=== PATIENT | male | born 1945 | race Caucasian/White ===

== ENCOUNTER 2018-02-28 13:32 | Emergency (ER) | payer MEDICARE ==
[2018-02-28 15:15] LABS: INR 3.91 (0.77-1.02)
[2018-02-28 15:53] VITALS: BP 137/73
--- NOTE | 2018-03-01 17:11 | ED ---
Throat Pain/Nasal Congestion - HPI Summary HPI Summary: Pt. is a 72 y.o male who presents to the ED for evaluation of nasal packing. Pt. is on coumadin for valve replacement. Pt. states he occasionally gets nosebleeds but is usually able to stop them at home. Pt. states his nose started bleeding today and would not stop so he went to [facility]. There pt. had nasal packing placed. Pt. presents to the ER for re-evaluation because he feels as though packing is in too far and he can feel it in his throat. Bleed has mostly subsided. Pt. denies any other complaints. Symptoms are mild in severity. No current modifying factors. - History of Current Complaint Chief Complaint: EDEpistaxis Time Seen by Provider: 02/28/18 14:09 Hx Obtained From: Patient - Allergies/Home Medications Allergies/Adverse Reactions: Allergies Allergy/AdvReac Type Severity Reaction Status Date / Time Penicillins Allergy See Comment Verified 02/28/18 13:39 Home Medications: Home Medications Carvedilol TAB* [Coreg TAB*] 1 tab PO BID 02/28/18 [History Confirmed 02/28/18] Cetirizine* [ZyrTEC 10 MG TAB*] 1 tab PO DAILY 02/28/18 [History Confirmed 02/28] Enalapril Maleate 1 tab PO DAILY 02/28/18 [History Confirmed 02/28/18] Insulin Glargine,Hum.rec.anlog [Leonor Sorenson] 10 units SUBCUT DAILY 02/28 [History Confirmed 02/28/18] Insulin Lispro [Humalog Kwikpen U-100] 1 unit SUBCUT AC 02/28/18 [History Confirmed 02/28/18] Neomyc/Colist/Hydrocort/Thonzn [Coly-Mycin S Otic Susp Drop] 1 drop BOTH EYES DAILY 02/28/18 [History Confirmed 02/28/18] Spironolactone 1 tab PO DAILY 02/28/18 [History Confirmed 02/28/18] Warfarin Sodium 5 - 10 mg PO DAILY 02/28/18 [History Confirmed 02/28/18] PMH/Surg Hx/FS Hx/Imm Hx Previously Healthy: Yes Infectious Disease History: No Infectious Disease History: Denies: Traveled Outside the [place] in Last 30 Days - Family History Family History: Noncontributory - Social History Occupation: Retired Lives: With Family Alcohol Use: None Substance Use Type: Reports: None Smoking Status (MU): Heavy Every Day Tobacco Smoker Review of Systems Positive: Epistaxis All Other Systems Reviewed And Are Negative: Yes Physical Exam Triage Information Reviewed: Yes Vital Signs On Initial Exam: Initial Vitals Temp Pulse Resp BP Pulse Ox 97.6 F 93 14 145/76 97 02/28/18 13:39 02/28/18 13:39 02/28/18 13:39 02/28/18 13:39 02/28/18 13:39 Vital Signs Reviewed: Yes Appearance: Positive: Well-Appearing - Pt. sitting up in bed in NAD. Packing present in right nare. Skin: Positive: Warm, Dry ENT: Positive: Other - Packing in right nare. Very minimal amount of bleeding when pt. touches tissue to packing. Posterior pharynx is patent with out blood Neck: Positive: Supple Neurological: Positive: Normal, CN Intact II-III Psychiatric: Positive: Affect/Mood Appropriate Diagnostics - Vital Signs Vital Signs Temp Pulse Resp BP Pulse Ox 02/28/18 15:53 98.5 F 85 16 137/73 96 02/28/18 13:39 97.6 F 93 14 145/76 97 - Laboratory Lab Results: Lab Results 02/28/18 Range/Units 14:54 INR (Anticoag Therapy) 3.91 H (0.77-1.02) Lab Statement: Any lab studies that have been ordered have been reviewed, and results considered in the medical decision making process. EENT Course/Dx - Course Course Of Treatment: Pt. presenting for re-eval of nasal packing. He has minimal bleeding at this time. VS are stable and he is well appearing. Pt. wishes to have packing removed as it is uncomfortable and he feels packing is too far in his nose. Discussed with pt. that removing packing wound cause re- bleeding and advised pt. it is best to leave packing in place. After I initiallly examined pt., he blew his nose and bleeding from packing increased. INR was check and is midly over therapeutic at 3.9. On re-exam bleeding has stopped. Will leave packing in place. Pt. states he was not placed on antibx at 5 start. He has allergy to PNC, will place on keflex, his states he has had it before without issue. Advised pt. to f.u in ENT office in 48 hours for packing removal. To return to ER if bleeding returns. Advised to avoid touching or blowing nose. To call PCP tomorrow to discuss INR level. Pt. understands and agrees with plan. - Differential Diagnoses Differential Diagnoses: Epistaxis - Diagnoses Provider Diagnoses: Epistaxis Discharge - Sign-Out/Discharge Documenting (check all that apply): Patient Departure - Discharge Plan Condition: Good Disposition: HOME Prescriptions: Cephalexin CAP* [Keflex CAP*] 500 mg PO BID #14 cap Patient Education Materials: Nosebleed (ED) Referrals: Eduardo Marks MD [Primary Care Provider] - Gilles Hobson MD [Medical Doctor] - Additional Instructions: Call the ENT office for packing removal in 48 hours Your INR today was a little high at 3.91- call your PCP tomorrow to discuss Take antibiotic as directed Do not blow or touch nose Return to ER if bleeding returns - Billing Disposition and Condition Condition: GOOD Disposition: Home
== END 2018-02-28 15:53 | disposition home or self-care (01) ==
LOC: ED 13:32
DX: R04.0 Epistaxis (principal); Z79.01 Long term (current) use of anticoagulants; Z95.2 Presence of prosthetic heart valve; Z88.0 Allergy status to penicillin; F17.200 Nicotine dependence, unspecified, uncomplicated
CPT/HCPCS: 36415; 85610; 99282

== ENCOUNTER 2018-03-19 01:14 | Inpatient (IN) | payer MEDICARE, OTHER ==
[2018-03-19] MEDS ORDERED: NS 0.9% 1000 ML* 2,000 ML IV ONE (01:54)
--- NOTE | 2018-03-19 01:55 | ED ---
Dizziness - HPI Summary HPI Summary: This patient is a 72 year old M presenting to [facility] with a chief complaint of sudden onset waxing and waning dizziness since 1700. He states that he isauro from a chair, and became dizzy, diaphoretic, and weak. Pt endorses abd pain and feeling dry and being dehydrated; pt missed 2 days of his Rx Lasix so he took double today. Pt denies SOB, nausea, fever, chills, cough, sore throat, and CP. 20 years ago heart SHx. He denies PMHx COPD, asthma. Pt is a smoker. He denies abd SHx. Rx ABx for left leg skin problem. - History Of Current Complaint Chief Complaint: EDAbdPain Stated Complaint: SOB Time Seen by Provider: 03/19/18 01:21 Hx Obtained From: Patient Onset/Duration: Still Present, Suddenly Timing: Constant - but waxing and waning Severity Initially: Moderate Severity Currently: Moderate Character: Weak, Dizzy Aggravating Factor(s): Position Change - seated to standing Alleviating Factor(s): Nothing Associated Signs And Symptoms: Positive: Diaphoresis, Other: - abd pain. Negative: Chest Pain, SOB, Fever - Allergies/Home Medications Allergies/Adverse Reactions: Allergies Allergy/AdvReac Type Severity Reaction Status Date / Time Penicillins Allergy See Comment Verified 02/28/18 13:39 Home Medications: Home Medications Aspirin 81 mg CHEW TAB* [Aspirin Low Dose TAB*] 81 mg PO DAILY 03/19/18 [ History Confirmed 03/19/18] Bumetanide TAB* [Bumex 1 MG TAB*] 1 mg PO BID 03/19/18 [History Confirmed ] Cephalexin CAP* [Keflex CAP*] 500 mg PO Q6HR 03/19/18 [History Confirmed ] Dutasteride 0.5 mg PO DAILY 03/19/18 [History Confirmed 03/19/18] Omeprazole CAP* [Prilosec CAP* 20 MG] 20 mg PO DAILY 03/19/18 [History Confirmed 03/19/18] Rosuvastatin (NF) [Crestor (NF)] 5 mg PO 1700 03/19/18 [History Confirmed ] Warfarin TAB(*) 10 mg PO SEE INSTRUCTIONS 03/19/18 [History Confirmed 03/19/18] PMH/Surg Hx/FS Hx/Imm Hx Endocrine/Hematology History: Denies: Hx Sickle Cell Disease Cardiovascular History: Reports: Hx Coronary Artery Disease Respiratory History: Denies: Hx Asthma, Hx Chronic Obstructive Pulmonary Disease (COPD) GI History: Denies: Hx Ileostomy Sensory History: Denies: Hx Legally Blind, Hx Deafness Opthamlomology History: Denies: Hx Legally Blind EENT History: Denies: Hx Deafness Psychiatric History: Denies: Hx Autism, Hx Schizophrenia Infectious Disease History: No Infectious Disease History: Denies: Traveled Outside the [place] in Last 30 Days - Family History Known Family History: Negative: Seizure Disorder, Blood Disorder Family History: Noncontributory - Social History Occupation: Retired Alcohol Use: None Substance Use Type: Reports: None Hx Tobacco Use: Yes Smoking Status (MU): Heavy Every Day Tobacco Smoker Review of Systems Positive: Skin Diaphoresis, Other - Dehydrated. Negative: Fever, Chills Negative: Sore Throat Negative: Chest Pain Negative: Shortness Of Breath, Cough Positive: Abdominal Pain. Negative: Nausea Positive: no symptoms reported Positive: Weakness All Other Systems Reviewed And Are Negative: Yes Physical Exam - Summary Physical Exam Summary: Appearance: Well-appearing, morbidly obese, lying in bed comfortably Skin: Warm, mildly diaphoretic, no obvious rash Eyes: sclera anicteric, no conjunctival pallor ENT: mucous membranes moist, pharynx appears normal Neck: Supple, nontender Respiratory: Clear to auscultation, no signs of respiratory distress Cardiovascular: Normal S1, S2. No murmurs. Normal distal pulses in tibial and radial bilaterally. Pt is known to be hypotensive Abdomen: Soft, non-tender, normal active bowel sounds present, morbidly obese Musculoskeletal: Normal, Strength/ROM Intact. Moderate pitting edema of legs. Neurological: A&Ox3, awake and alert, mentation is normal, speech is fluent and appropriate Psychiatric: affect is normal, does not appear anxious or depressed Triage Information Reviewed: Yes Vital Signs On Initial Exam: Initial Vitals Temp Pulse Resp BP Pulse Ox 95.5 F 79 12 71/45 100 03/19/18 01:29 03/19/18 01:29 03/19/18 01:29 03/19/18 01:29 03/19/18 01:29 Vital Signs Reviewed: Yes Diagnostics - Vital Signs Vital Signs Temp Pulse Resp BP Pulse Ox 03/19/18 01:29 95.5 F 79 12 71/45 100 - Laboratory Result Diagrams: 03/19/18 01:57 03/19/18 01:39 Lab Statement: Any lab studies that have been ordered have been reviewed, and results considered in the medical decision making process. - Radiology CXR Radiology Interpretation Completed By: ED Physician - No acute disease. Pending official imaging report. - CT C/A/P CT Interpretation: Positive (See Comments) CT Interpretation Completed By: Radiologist - Probable underlying cirrhosis. Moderate amount of ascites. Multiple heterogeneous hepatic masses --- compatible with metastatic disease. Hepatocellular carcinoma cannot be excluded. No hydronephrosis. Bilateral non-obstructing intrarenal stones. Contracted gallbladder, containing multiple stones. Small right pleural effusion. Dr. Isabel has reviewed this report. - EKG 0216 Cardiac Rate: NL - 79 EKG Rhythm: Sinus Rhythm Ectopy: None EKG Interpretation: LBBB Re-Evaluation - Re-Evaluation First Eval Re-Evaluation Time: 02:01 Change: Worse Comment: Per RN Idalmis, pt endorses new onset pain radiation to his back, and shows worsening pallor. He was emergently sent to the CT scanner to rule out an acute vascular catastrophe in the abdomen or chest. He got through that procedure located, but remained markedly hypotensive. After reasonable trial of fluid bolus, he was started on Levophed, and remained hypotensive despite all that. Etiology of his shock state is unclear. He does not have any evidence of active bleeding, there is no chest pain or troponin abnormalities to suggest acute SD, no history of anaphylaxis, and no acute vascular catastrophe such as aortic dissection or abdominal aortic aneurysmal rupture. He was ordered a transfusion of 2 units of blood as well as broad-spectrum antibiotics to cover for septic shock. Prognosis remains very guarded. Dizzy Course/Dx - Course Course Of Treatment: A 72-year-old M presents to the ED with a CC of dizziness since 1700. (+) diaphoresis, abd pain, dehydrated, and weakness. (-) fever, chills, cough, sore throat, SOB, CP, and nausea. Pt missed past 2 days lasix so he doubled up today. A CXR was (-). An EKG reveals NSR at 79 BPM with a LBBB. A CT C/A/P reveals probable underlying cirrhosis. Moderate amount of ascites. Multiple heterogeneous hepatic masses --- compatible with metastatic disease. Hepatocellular carcinoma cannot be excluded. No hydronephrosis. Bilateral non- obstructing intrarenal stones. Contracted gallbladder, containing multiple stones. Small right pleural effusion. In the ED course, pt was given flagyl, dextrose, nl saline. Pt shows a lactic acid of 8.8, low H&H, high INR and APTT, high glucose, low sodium and chloride, low venous pH, low O2 PP, low bicarbonate , low base xs, low O2 sat. - Diagnoses Provider Diagnoses: Shock, Severe anemia, Metabolic acidosis, Lactic acidosis - Provider Notifications Discussed Care Of Patient With: Sapna Benavidez Time Discussed With Above Provider: 02:47 Instructed by Provider To: Other - Will see pt in ED, accepts admission. - Critical Care Time Critical Care Time: 30-74 min Discharge - Sign-Out/Discharge Documenting (check all that apply): Patient Departure - admit - Discharge Plan Condition: Critical Disposition: ADMITTED TO [facility] - Billing Disposition and Condition Condition: CRITICAL Disposition: Admitted to [facility] - Attestation Statements Document Initiated by Lizette: Yes Documenting Scribe: Siva Holcomb Provider For Whom Lizette is Documenting (Include Credential): Dr. Newton Isabel MD Scribe Attestation: Siva Francisco screrikaed for Dr. Newton Isabel MD on 03/19/18 at 0623. Scribe Documentation Reviewed: Yes Provider Attestation: The documentation as recorded by the Siva tellez accurately reflects the service I personally performed and the decisions made by me, Dr. Newton Isabel MD
[2018-03-19] MEDS ORDERED: Iodixanol* (CONTRAST) 320 MG/ML 100 ML SDV IV ONE (02:15)
[2018-03-19 02:17] LABS: Hematocrit 23 % (42-52); Hemoglobin 6.8 g/dl (14.0-18.0); Mean Corpuscular HGB Conc 30 g/dl (31-36); Mean Corpuscular Hemoglobin 22 pg (27-31); Mean Corpuscular Volume 73 fL (80-94); Mean Platelet Volume 9.7 um3 (7.4-10.4); Platelet Count 363 10^3/ul (150-450); Red Blood Count 3.13 10^6/ul (4.00-5.40); Red Cell Distribution Width 21 % (10.5-15)
[2018-03-19 02:21] LABS: INR 3.81 (0.77-1.02)
[2018-03-19 02:30] LABS: EGFR Non-African American 61.5 (>60)
[2018-03-19 02:36] LABS: ABS Basophils 0.1 10^3/ul (0-0.2); ABS Eosinophils 0 10^3/ul (0-0.6); ABS Lymphocytes 1.5 10^3/ul (1.0-4.8); ABS Monocytes 0.6 10^3/ul (0-0.8); ABS Neutrophils 9.8 10^3/ul (1.5-7.7); ABS Nucleated RBC 0 10^3/ul; Eosinophil % 0.1 % (0-6); Lymphocyte % 12.6 % (25-47); Nucleated Red Blood Cells % 0.3
[2018-03-19] MEDS ORDERED: metroNIDAZOLE IV 500 MG/100ML* 500 MG/100 ML BAG IVPB ONE (02:41)
[2018-03-19] MEDS ORDERED: NS 0.9% 1000 ML*IV.FLUID IV ONE (02:41)
[2018-03-19] MEDS ORDERED: Cefepime(*) 2 GM in NS 0.9% 50 ML* 50 ML IVPB ONE (02:41)
[2018-03-19] MEDS ORDERED: NS 0.9% 50 ML* 50 ML ONE (02:46)
[2018-03-19] MEDS ORDERED: Vancomycin(*) 1,750 MG in NS 0.9% 500 ML* 500 ML IVPB ONE (03:00)
[2018-03-19] MEDS ORDERED: Vancomycin(*) 1,000 MG VIAL IVPB SCH (03:00)
[2018-03-19] MEDS ORDERED: NS 0.9% 500 ML* 500 ML ONE (03:00)
[2018-03-19] MEDS ORDERED: Cefepime 2 GM in Dextrose(*) 2 GM/50 ML BAG IV ONE (03:00)
--- NOTE | 2018-03-19 03:06 | RAD ---
EXAM: CT Chest With Intravenous Contrast CLINICAL HISTORY: 72 year old male. Bloating, SOB, abdominal pain, hypotension. TECHNIQUE: Axial computed tomography images of the chest with intravenous contrast. All CT scans at this facility use at least one of these dose optimization techniques: automated exposure control; mA and/or kV adjustment per patient size (includes targeted exams where dose is matched to clinical indication); or iterative reconstruction. Coronal and sagittal reformatted images were created and reviewed. CONTRAST: 141 mL of Visi administered intravenously COMPARISON: No relevant prior studies available FINDINGS: No prior studies are available for comparison. No focal infiltrates. Small right pleural effusion. No pneumothorax. No acute fracture nor dislocation. No acute aortic pathology. No major nor central pulmonary emboli. IMPRESSION: No focal infiltrates. Small right pleural effusion. EXAM: CT Abdomen and Pelvis With Intravenous Contrast EXAM DATE/TIME: 03/19/18 (2:08am) CLINICAL HISTORY: 72 year old male. Bloating, SOB, abdominal pain, hypotension. TECHNIQUE: Axial computed tomography images of the abdomen and pelvis with intravenous contrast. All CT scans at this facility use at least one of these dose optimization techniques: automated exposure control; mA and/or kV adjustment per patient size (includes targeted exams where dose is matched to clinical indication); or iterative reconstruction. Coronal and sagittal reformatted images were created and reviewed. CONTRAST: 141 mL of Visi administered intravenously COMPARISON: No relevant prior studies available FINDINGS: Small right pleural effusion. Multiple hypodense and heterogeneous hepatic masses. A few such lesion show varying degrees of enhancement. Many appear to be necrotic in nature. Portions of the liver contour are nodular, suggestive of cirrhosis. Moderate amount of abdominal and pelvic ascites. A contracted gallbladder is likely present, containing multiple calcified stones (Ser. 3 - Image #40). No hydronephrosis. Bilateral renal cysts. Bilateral renal cortical atrophy. Bilateral non-obstructing intrarenal stones. No bowel obstruction. No free air. IMPRESSION: Probable underlying cirrhosis. Moderate amount of ascites. Multiple heterogeneous hepatic masses --- compatible with metastatic disease. Hepatocellular carcinoma cannot be excluded. No hydronephrosis. Bilateral non-obstructing intrarenal stones. Contracted gallbladder, containing multiple stones. Small right pleural effusion. See additional comments above.
[2018-03-19] MEDS ORDERED: Norepinephrine 16MCG/ML IVPRE* 4,000 MCG/250 ML BAG IV ONE (03:28)
[2018-03-19] MEDS: Norepinephrine 16MCG/ML IVPRE* 4,000 MCG/250 ML BAG IV SCH ×5 (03:30→22:34)
[2018-03-19] MEDS ORDERED: Ondansetron INJ* 2 MG/ML VIAL IV PRN (04:19)
[2018-03-19] MEDS ORDERED: LORazepam INJ* 2 MG/ML 1 ML VIAL IV PUSH PRN (04:19)
[2018-03-19] MEDS ORDERED: Vancomycin per Pharmacy* NOTE FOLLOW UP PRN (04:25)
[2018-03-19] MEDS ORDERED: NS 0.9% 1000 ML* 1,000 ML IV SCH (04:30)
[2018-03-19] MEDS ORDERED: Dextrose 50% Syringe 50 ML* 25 GM/50 ML SYRINGE IV PUSH PRN (04:33)
[2018-03-19] MEDS ORDERED: Vancomycin(*) 0 MG in NS 0.9% 250 ML* 250 ML IVPB SCH (05:00)
--- NOTE | 2018-03-19 06:54 | PN ---
Sepsis Event Evaluation Date of Evaluation: 03/19/18 Time of Evaluation: 06:20 Current Stage of Sepsis: Septic Shock Vital Signs - Last 12 Hours: Vital Signs - 12 hr Temp Pulse Resp BP Pulse Ox 03/19/18 06:16 93.2 F 77 16 91/42 99 03/19/18 06:01 92.7 F 79 14 90/44 100 03/19/18 06:00 94.3 F 77 27 100 03/19/18 05:46 93.6 F 78 28 82/51 99 03/19/18 05:39 95 F 75 22 82/54 99 03/19/18 05:37 94.3 F 76 16 101/44 98 03/19/18 05:32 94.5 F 77 26 106/58 99 03/19/18 05:20 95 F 77 17 82/54 99 03/19/18 05:16 95.0 F 74 22 82/54 99 03/19/18 05:04 37 03/19/18 04:38 95.4 F 73 18 73/52 95 03/19/18 04:27 95.4 F 74 15 82/45 96 03/19/18 04:05 95.7 F 73 21 90/56 95 03/19/18 04:00 95.7 F 74 23 97 03/19/18 03:56 95.9 F 76 31 75/47 97 03/19/18 03:35 95.9 F 76 22 77/41 93 03/19/18 03:25 95.7 F 75 30 72/40 92 03/19/18 03:08 93.2 F 78 26 76/54 93 03/19/18 03:00 77 21 95 03/19/18 02:45 85 23 82/47 91 03/19/18 02:35 85 21 72/42 95 03/19/18 02:25 81 18 84/50 94 03/19/18 02:23 79 40 94 03/19/18 01:29 95.5 F 79 12 71/45 100 Lactic Acid: 03/19/18 03/19/18 01:57 05:30 Lactic Acid 8.8 H* 9.0 H* - Cardiopulmonary Exam Capillary Refill: < or = to 5 seconds Respiratory: Symmetrical Chest Expansion and Respiratory Effort, Clear to Auscultation Cardiovascular: NL Sounds; No Murmurs; No JVD, RRR, - - 2-3+ pitting edema of the B/L LE - Peripheral Pulse Exam Radial Pulses: Bilateral Normal - Skin Exam Skin Exam: Heil - Barry Coma Scale Best Eye Response: 4 - Spontaneous Best Motor Response: 6 - Obeys Commands Best Verbal Response: 5 - Oriented Coma Scale Total: 15 Assess/Plan/Problems-Billing Assessment:
[2018-03-19 07:25] LABS: Urine Appearance Cloudy; Urine Blood 2+ (Negative); Urine Color Amber; Urine Ketones Negative (Negative); Urine Protein 2+(100 mg/dL) (Negative); Urine Red Blood Cell 2+(6-10/hpf) (Absent); Urine Specific Gravity > 1.060 (1.010-1.030); Urine Urobilinogen Negative (Negative); Urine White Blood Cell 3+(>20/hpf) (Absent)
[2018-03-19] MEDS ORDERED: Insulin LISPRO* 1 UNITS UNIT SUBCUT SCH (07:30)
[2018-03-19] MEDS ORDERED: Vasopressin* 100 UNITS in D5W 250 ML BAG IVPB SCH (07:45)
--- NOTE | 2018-03-19 07:55 | RAD ---
HISTORY: hypotension,attempt at SC CVL on left COMPARISONS: November 04, 2010 VIEWS: 1: frontal portable view of the chest at 3:27 AM FINDINGS: LINES AND TUBES: None. CARDIOMEDIASTINAL SILHOUETTE: The cardiomediastinal silhouette is stable. PLEURA: The costophrenic angles are sharp. No pleural abnormalities are noted. There is no appreciable pneumothorax. LUNG PARENCHYMA: There is prominence of the central pulmonary vasculature with a mild diffuse reticular pattern of opacification. ABDOMEN: The upper abdomen is clear. There is no subphrenic gas. BONES AND SOFT TISSUES: The patient is status post median sternotomy. IMPRESSION: PULMONARY VASCULAR CONGESTION WITH MILD PULMONARY INTERSTITIAL EDEMA. NO APPRECIABLE PNEUMOTHORAX. R2
[2018-03-19] MEDS ORDERED: Perflutren Lipid Microsphere* 3 ML VIAL ONE (08:09)
[2018-03-19 08:50] LABS: EGFR Non-African American 60.3 (>60)
[2018-03-19 08:52] LABS: Hematocrit 22 % (42-52); Hemoglobin 6.6 g/dl (14.0-18.0); Mean Corpuscular HGB Conc 30 g/dl (31-36); Mean Corpuscular Hemoglobin 24 pg (27-31); Mean Corpuscular Volume 79 fL (80-94); Mean Platelet Volume 9.6 um3 (7.4-10.4); Platelet Count 328 10^3/ul (150-450); Red Blood Count 2.79 10^6/ul (4.00-5.40); Red Cell Distribution Width 23 % (10.5-15); White Blood Count 15.9 10^3/ul (3.5-10.8)
[2018-03-19] MEDS ORDERED: Omeprazole CAP* 20 MG PO SCH (09:00)
[2018-03-19] MEDS ORDERED: Aspirin 81 mg CHEW TAB* 81 MG TAB.CHEW PO SCH (09:00)
[2018-03-19] MEDS ORDERED: fentaNYL* 50 MCG/ML 2 ML VIAL (100 MCG VIAL) ONE (09:02)
[2018-03-19] MEDS: Insulin LISPRO* 1 UNITS UNIT SUBCUT SCH ×3 (09:06→19:47)
[2018-03-19] MEDS ORDERED: fentaNYL* 50 MCG/ML 2 ML VIAL (100 MCG VIAL) IV ONE (10:00)
--- NOTE | 2018-03-19 10:20 | HP ---
CC: Dr. Marks; Dr. Moreno HISTORY AND PHYSICAL: DATE OF ADMISSION: 03/19/18 PRIMARY CARE PROVIDER: Dr. Marks SATELLITE COMMUNICATIONS OPERATOR: Dr. Moreno CHIEF COMPLAINT: Not acting right, perfuse sweating, and concern for dehydration. HISTORY OF PRESENT ILLNESS: Mr. Cummins is a 72-year-old male who currently is unable to provide any history. His attempts to provide history, however, she generally does a poor job of relaying t he events over the last couple of days. Per the patient's , the patient had been relatively norm al up until dinnertime of the night prior to admission. She noted that he did not eat any dinner. Evon calix then began this complaint of feeling dizzy when he tried to get up to go to bed. He needed assista nce getting through the bedroom. He did go to bed early. Reportedly, the patient at some point yeste rday complained of feeling very sweaty and dehydrated. He had not taken his diuretic for the 2 days prior as he had appointments and he did not want to be urinating, while trying to get to those appoin tments. He spoke with his primary care provider, who told him to double up his diuretic, which he di d on 02/15/18. With the patient not acting completely right and his complaints of sweating and stati ng that he felt dehydrated, the patient's had him brought to the emergency room. Of note, the p atdeshawn did have a nosebleed around 02/28/18. He was seen at [facility] and subsequently f ollowed up in the emergency room due to concerns about his packing being not on the correct place. U ltimately, the packing was removed and he had no further issues with severe nosebleeds. That noseblee d, however, lasted approximately 5 hours. PAST MEDICAL HISTORY: 1. Coronary artery disease, status post [place] x2. 2. Hypertension. 3. Hyperlipidemia. 4. Type 2 diabetes. 5. Ongoing tobacco abuse. PAST SURGICAL HISTORY: Aortic valve replacement/mechanical. MEDICATIONS: 1. Toujeo 10 units subcutaneous at bedtime. 2. Crestor 5 mg p.o. daily. 3. Aspirin 81 mg p.o. daily. 4. Dutasteride 0.5 mg p.o. daily. 5. Coumadin 10 mg on Thursday, Thursday, Thursday, , Thursday, 7.5 mg on Thursday and Thursday. 6. Bumex 1 mg p.o. b.i.d. 7. Omeprazole 20 mg p.o. daily. 8. Cetirizine 10 mg p.o. daily. 9. Enalapril 20 mg p.o. b.i.d. 10. Lispro via sliding scale q.a.c. 11. Spironolactone 25 mg p.o. daily. 12. Coreg 25 mg p.o. twice daily. ALLERGIES: PENICILLIN. FAMILY HISTORY: Both parents had a history of coronary disease. SOCIAL HISTORY: The patient is still smoking. He smokes anywhere between 1 to 1- 1/2 packs perhaps u p to 2 packs per day. He smoked for at least the last 60 years. He denies any alcohol use. He is a retired welder apprentice gas/vaudeville actor. He is . He has 4 children. REVIEW OF SYSTEMS: Unobtainable from the patient due to agitation and confusion. PHYSICAL EXAMINATION GENERAL: The patient is a well-developed, obese, elderly male, seen lying in the stretcher, appearin g agitated, frequently trying to roll over, but in no acute distress. VITAL SIGNS: Blood pressure 73/52, pulse 72, respirations 18, temp 95.4, O2 sat 95% on 2 L. HEENT: Pupils are equal. Extraocular muscles are intact. Oropharynx is clear. Oral mucosa is dry. There is no submandibular, cervical, or supraclavicular adenopathy. Thyroid is not enlarged. No th yroid nodules noted. PULMONARY: Lungs are clear to auscultation anteriorly and at the lateral bases. CARDIAC: Normal S1, S2. Regular rate and rhythm. I do not appreciate any murmurs. There is 2 to 3 + bilateral lower extremity pitting edema. ABDOMEN: Bowel sounds are present. Abdomen is obese, soft, nondistended, nontender. I do question a fluid wave. MUSCULOSKELETAL: There is no cyanosis or clubbing of the digits. There is full active range of katie on of all 4 extremities. NEURO: Exam is deferred at this time due to the patient's agitation. PSYCH: The patient is agitated, frequently asking if he can roll over and stating that he feels hot. SKIN: Cool is to touch, it is dry. There is a large approximately medium-sized orange ruptured blis ter noted to the left anterior ramon. The denuded area of skin is weeping serous fluid. DIAGNOSTIC STUDIES/LAB DATA: WBC 12.0, hemoglobin 6.8, hematocrit 23, platelets 363. INR 3.81. Sod ium 134, potassium 4.7, chloride 97, CO2 18, anion gap of 19. BUN 27, glucose 288, lactic acid 8.8, c alcium 8.4, bilirubin 1.4, AST 55, ALT 18, alk phos 112, troponin 0.02, albumin 3.0, procalcitonin 0. 2. Chest x-ray to my interpretation appears to be a poor inspiratory film, though clear. CT abdomen and pelvis reveals no focal infiltrates of the lungs, a small right pleural effusion. CT abdomen and pe lvis is probable underlying cirrhosis with a moderate amount of ascites. There are multiple heteroge neous hepatic masses compatible with metastatic disease. Hepatocellular carcinoma cannot be excluded . No hydronephrosis. Bilateral nonobstructing intrarenal stones are noted. A contracted gallbladder is noted containing multiple stones. EKG reveals sinus rhythm with a left bundle-branch block. ASSESSMENT AND PLAN: Mr. Cummins is a 72-year-old male with a history of coronary artery disease, on going tobacco abuse, hypertension, and type 2 diabetes, who presents to the emergency room with vague complaints of not acting normal, feeling dehydrated in the setting of doubling up his diuretic. 1. Shock. At this point, it appears the patient is in shock. He is hypotensive requiring vasopress ors at high dose to maintain a MAP around 65. The etiology of the shock is not completely clear. Dif ferential for this would be hemorrhagic given his recent nosebleed, however, this was approximately 2 weeks ago, however, he is identified to have a worsened anemia versus hypovolemic shock secondary to hemorrhage and taking his diuretic therapy versus cardiogenic shock versus distributive or septic sh ock. At this point, I am going to go ahead and treat the patient as if he has a septic shock given he is hypothermic, he has received broad- spectrum antibiotics in the emergency room and will continue on cefepime and vancomycin. Lactic acid levels will be followed every 4 hours until they have normal ized. The patient was ordered 30 mL/kg bolus in the emergency room, however, given his marked anemia , the patient did receive 2 units of packed red blood cells, which delayed the administration of the full 30 mL/kg bolus within the first 3 hours of his stay. He will complete the 30 mL/kg bolus and th en continue on normal saline at 100 mL per hour, however, he will need another fluid assessment to de termine if this rate should be increased. Transthoracic echocardiogram has been ordered to evaluate the patient's mechanical aortic valve as well as systolic function. In our system, it does not appea r that there has been an echocardiogram since 2008. 2. Hypothermia, it is unclear why the patient is hypothermic. We will obtain a cortisol level. This could be secondary to sepsis. The patient states that he feels very hot, however, to touch he is very cool. Once in ICU, we will reevaluate the patient's temperature and likely place a Mehdi Hugger. 3. Anemia. The patient had blood work obtained as ordered by his primary care provider on 03/18/18. At this time, his hemoglobin was 8.9. It is dropped to 6.8. The patient and his are unable to tell me if there have been any signs of bleeding recently. He is on Coumadin and his INR is slightl y supratherapeutic for his goal of 2.5 to 3.5. As above, the patient is receiving 2 units of packed red blood cells. Follow up hemoglobin will be obtained at 8 a.m. Lab work from 03/18/18 did reveal that he is iron deficient with his iron level of 31, TIBC of 413, percent saturation of 8%, and a lizette ritin of 33.8. Once stabilized, the patient should be initiated on iron supplementation. 4. Metabolic acidosis, I suspect this is secondary to his marked lactic acidosis. We will try to imp rove perfusion with fluid, blood, and pressors. I suspect as the lactic acidosis resolves, his metab olic acidosis will be correct as well. 5. Probable hepatic metastasis. The patient's CT abdomen and pelvis reveals likely hepatic metastas is. There is report that some of these appeared to be necrotic. The patient once stabilized from a h emodynamic standpoint, should undergo evaluation for these lesions within the liver. 6. Type 2 diabetes. The patient will be maintained on 10 units of Lantus at bedtime and a sliding s frank every 6 hours as I will keep him n.p.o. for now. 7. Hypertension. At this point, the patient is clearly hypotensive. His antihypertensives will be held. 8. Coronary artery disease. The patient's first 2 troponins are negative. The patient's did n ot report hearing any complaints of chest pain. The patient will be getting an echocardiogram. The l eft bundle-branch block seen on EKG is new compared to his last EKG, which was 2008. An attempt to ge t a more recent EKG should be made. 9. Tobacco abuse. For now, I will hold off on nicotine replacement therapy, however, as the patient stabilizes, this should be offered to him. 10. DVT prophylaxis. According to the Adult Thrombosis Prophylaxis Risk Factor Assessment Guide, th e patient has a total risk factor score of 6, making him highest risk. His INR is slightly suprather apeutic at this time. This will act as his DVT prophylaxis. His Coumadin dose will need to be adjuste d tonight if he is to stay on the Coumadin. 11. Code status is full. TIME SPENT: 70 minutes of critical care time was spent admitting this patient. [id number]/[facility] #: [id number]
[2018-03-19] MEDS ORDERED: Sodium Bicarbonate 8.4%* 50 ML SYRINGE ONE (10:41)
[2018-03-19] MEDS ORDERED: Epinepherine DRIP 4 mcg/ml 250 mls (dosed in mcg/kg/min) IVPB SCH (10:45)
[2018-03-19] MEDS ORDERED: Piperacillin/Tazobac ADVAN(*) 3.375 GM in NS 0.9% 100 ML* 100 ML IVPB ONE (11:44)
--- NOTE | 2018-03-19 11:53 | PN ---
Date of Service: 03/19/18 Critical Care Services: 72M with htn, hld, dm, cad s/p mi, cirrhosis, presents with weakness. Found to be in septic shock in the ER 2/[address] scan with new metastatic disease seen in the liver. 03/19: Worsening hypotension. Maxed on 3 pressors. Vital Signs: Temp Pulse Resp BP SpO2 FiO2 97.3 F 79 28 93/85 97 03/19/18 11:00 03/19/18 11:00 03/19/18 11:00 03/19/18 10:08 03/19/18 11:00 Physical Exam: Gen - acutely ill, obese HEENT - ncat, eomi, perrl Neck - no jvd CV - s1/s2, +click Pulm - cta, no murmur Abd - +distention ext - +chronic stasis changes, + left ramon ulcer Neuro - lethargic, following commands Fluid Balance (Past 24 Hours): I= O= Net Intake & Output 03/17/18 03/18/18 03/19/18 03/20/18 06:59 06:59 06:59 06:59 Intake Total 243 520 Output Total 151 Balance 243 369 Weight 122.9 kg Intake: IVPB 520 ABX - VANCOMYCIN 520 Packed Cells 243 Output: Roper 151 Labs: Laboratory Results - last 24 hr 03/19/18 03/19/18 03/19/18 01:39 01:39 01:39 WBC RBC Hgb Hct MCV MCH MCHC RDW Plt Count MPV Neut % (Auto) Lymph % (Auto) [place] % (Auto) Eos % (Auto) Baso % (Auto) Absolute Neuts (auto) Absolute Lymphs (auto) Absolute Monos (auto) Absolute Eos (auto) Absolute Basos (auto) Absolute Nucleated RBC Nucleated RBC % Polychromasia Microcytosis INR (Anticoag Therapy) 3.81 H APTT 41.4 H VBG pH VBG pCO2 VBG pO2 VBG HCO3 VBG O2 Saturation VBG Base Excess Sodium 134 L D Potassium 4.7 Chloride 97 L Carbon Dioxide 18 L Anion Gap 19 H BUN 27 H Creatinine 1.17 Est GFR ( Amer) 74.4 Est GFR (Non-Af Amer) 61.5 BUN/Creatinine Ratio 23.1 H Glucose 288 H POC Glucose (mg/dL) Lactic Acid Calcium 8.4 L Total Bilirubin 1.40 H AST 55 H ALT 18 Alkaline Phosphatase 122 H Troponin I 0.02 C-Reactive Protein 31.77 H Total Protein 5.6 L Albumin 3.0 L Globulin 2.6 Albumin/Globulin Ratio 1.2 Procalcitonin TSH 1.20 Cortisol 56.96 Urine Color Urine Appearance Urine pH Ur Specific [place] Urine Protein Urine Ketones Urine Blood Urine Nitrate Urine Bilirubin Urine Urobilinogen Ur Leukocyte Esterase Urine WBC (Auto) Urine RBC (Auto) Urine Bacteria Urine Glucose Blood Type Antibody Screen Crossmatch 03/19/18 03/19/18 03/19/18 01:39 01:57 01:57 WBC 12.0 H RBC 3.13 L Hgb 6.8 L Hct 23 L MCV 73 L MCH 22 L MCHC 30 L RDW 21 H Plt Count 363 MPV 9.7 Neut % (Auto) 81.5 Lymph % (Auto) 12.6 L [place] % (Auto) 4.8 Eos % (Auto) 0.1 Baso % (Auto) 1.0 Absolute Neuts (auto) 9.8 H Absolute Lymphs (auto) 1.5 Absolute Monos (auto) 0.6 Absolute Eos (auto) 0 Absolute Basos (auto) 0.1 Absolute Nucleated RBC 0 Nucleated RBC % 0.3 Polychromasia 2+ Microcytosis 3+ INR (Anticoag Therapy) APTT VBG pH VBG pCO2 VBG pO2 VBG HCO3 VBG O2 Saturation VBG Base Excess Sodium Potassium Chloride Carbon Dioxide Anion Gap BUN Creatinine Est GFR ( Amer) Est GFR (Non-Af Amer) BUN/Creatinine Ratio Glucose POC Glucose (mg/dL) Lactic Acid 8.8 H* Calcium Total Bilirubin AST ALT Alkaline Phosphatase Troponin I C-Reactive Protein Total Protein Albumin Globulin Albumin/Globulin Ratio Procalcitonin 0.2 TSH Cortisol Urine Color Urine Appearance Urine pH Ur Specific [place] Urine Protein Urine Ketones Urine Blood Urine Nitrate Urine Bilirubin Urine Urobilinogen Ur Leukocyte Esterase Urine WBC (Auto) Urine RBC (Auto) Urine Bacteria Urine Glucose Blood Type Antibody Screen Crossmatch 03/19/18 03/19/18 03/19/18 01:58 03:05 03:05 WBC RBC Hgb Hct MCV MCH MCHC RDW Plt Count MPV Neut % (Auto) Lymph % (Auto) [place] % (Auto) Eos % (Auto) Baso % (Auto) Absolute Neuts (auto) Absolute Lymphs (auto) Absolute Monos (auto) Absolute Eos (auto) Absolute Basos (auto) Absolute Nucleated RBC Nucleated RBC % Polychromasia Microcytosis INR (Anticoag Therapy) APTT VBG pH 7.15 L VBG pCO2 50 VBG pO2 24 L VBG HCO3 16.0 L VBG O2 Saturation 33.8 L VBG Base Excess -10.5 L Sodium Potassium Chloride Carbon Dioxide Anion Gap BUN Creatinine Est GFR ( Amer) Est GFR (Non-Af Amer) BUN/Creatinine Ratio Glucose POC Glucose (mg/dL) Lactic Acid Calcium Total Bilirubin AST ALT Alkaline Phosphatase Troponin I 0.02 C-Reactive Protein Total Protein Albumin Globulin Albumin/Globulin Ratio Procalcitonin TSH Cortisol Urine Color Urine Appearance Urine pH Ur Specific [place] Urine Protein Urine Ketones Urine Blood Urine Nitrate Urine Bilirubin Urine Urobilinogen Ur Leukocyte Esterase Urine WBC (Auto) Urine RBC (Auto) Urine Bacteria Urine Glucose Blood Type A Positive Antibody Screen Negative Crossmatch See Detail 03/19/18 03/19/18 03/19/18 05:30 06:44 08:17 WBC RBC Hgb Hct MCV MCH MCHC RDW Plt Count MPV Neut % (Auto) Lymph % (Auto) [place] % (Auto) Eos % (Auto) Baso % (Auto) Absolute Neuts (auto) Absolute Lymphs (auto) Absolute Monos (auto) Absolute Eos (auto) Absolute Basos (auto) Absolute Nucleated RBC Nucleated RBC % Polychromasia Microcytosis INR (Anticoag Therapy) APTT VBG pH VBG pCO2 VBG pO2 VBG HCO3 VBG O2 Saturation VBG Base Excess Sodium 137 Potassium 4.8 Chloride 106 Carbon Dioxide 19 L Anion Gap 12 H BUN 29 H Creatinine 1.19 H Est GFR ( Amer) 72.9 Est GFR (Non-Af Amer) 60.3 BUN/Creatinine Ratio 24.4 H Glucose 254 H POC Glucose (mg/dL) Lactic Acid 9.0 H* Calcium 7.1 L Total Bilirubin AST ALT Alkaline Phosphatase Troponin I C-Reactive Protein Total Protein Albumin Globulin Albumin/Globulin Ratio Procalcitonin TSH Cancelled Cortisol Urine Color Jayna Urine Appearance Cloudy Urine pH 5.0 Ur Specific [place] > 1.060 H Urine Protein 2+(100 mg/dl) A Urine Ketones Negative Urine Blood 2+ A Urine Nitrate Negative Urine Bilirubin Negative Urine Urobilinogen Negative Ur Leukocyte Esterase 2+ A Urine WBC (Auto) 3+(>20/hpf) A Urine RBC (Auto) 2+(6-10/hpf) A Urine Bacteria Absent Urine Glucose Negative Blood Type Antibody Screen Crossmatch 03/19/18 03/19/18 03/19/18 08:17 08:17 08:25 WBC 15.9 H RBC 2.79 L Hgb 6.6 L Hct 22 L MCV 79 L MCH 24 L MCHC 30 L RDW 23 H Plt Count 328 MPV 9.6 Neut % (Auto) Lymph % (Auto) [place] % (Auto) Eos % (Auto) Baso % (Auto) Absolute Neuts (auto) Absolute Lymphs (auto) Absolute Monos (auto) Absolute Eos (auto) Absolute Basos (auto) Absolute Nucleated RBC Nucleated RBC % Polychromasia Microcytosis INR (Anticoag Therapy) APTT VBG pH VBG pCO2 VBG pO2 VBG HCO3 VBG O2 Saturation VBG Base Excess Sodium Potassium Chloride Carbon Dioxide Anion Gap BUN Creatinine Est GFR ( Amer) Est GFR (Non-Af Amer) BUN/Creatinine Ratio Glucose POC Glucose (mg/dL) 251 H Lactic Acid 6.2 H* Calcium Total Bilirubin AST ALT Alkaline Phosphatase Troponin I C-Reactive Protein Total Protein Albumin Globulin Albumin/Globulin Ratio Procalcitonin TSH Cortisol Urine Color Urine Appearance Urine pH Ur Specific [place] Urine Protein Urine Ketones Urine Blood Urine Nitrate Urine Bilirubin Urine Urobilinogen Ur Leukocyte Esterase Urine WBC (Auto) Urine RBC (Auto) Urine Bacteria Urine Glucose Blood Type Antibody Screen Crossmatch Studies: CT chest/abd/pel with iv contrast 03/19 - metastatic disease seen in the liver. HCC not excluded. +ascites. Impression: 72M with htn, hld, dm, cad c/p mi, metal aortic valve, cirrhosis presents with septic shock 2/ uti? new metastatic disease of the liver. Plan: Neuro - AMS - 2/2 sepsis - monitor closely CV - htn, hld, cad, metal aortic valve, shock - shock 2/2 sepsis - iv hydration - maxed on 3 pressors - stress dose steroids - c/w ac for aortic valve - goal inr 2.5 - 3.5 Pulm - copd - nebulizers prn - supplemental o2 prn ID - septic shock - 2/2 uti vs leg ulcer vs sbp - vanc/zosyn (day 1) per pharmacy - f/u cultures - serial lactates - iv hydration - unable to visualize IVC 2/2 cirrhotic liver with mets GI - cirrhosis - unclear etiology - monitor for bleeding Heme - liver mets, anemia - liver mets vs HCC - if sepsis improves will need work up - hgb low but no obvious source of bleeding - serial cbc - keep hgb > 7 Renal - janette - 2/2 septic shock - monitor lytes - monitor i/o Endo - dm - check fs, niss Lines - right fem TLC (03/19), left radial a line (03/19) PPx - gi/dvt Full Code Critical Care Time: 90 mins
[2018-03-19] MEDS ORDERED: Zosyn per Pharmacy* NOTE FOLLOW UP SCH (12:00)
[2018-03-19] MEDS ORDERED: Sodium Bicarbonate 8.4% IV* 150 MEQ in NS 0.45% 1000 ML BAG* 1,000 ML IV SCH (12:00)
[2018-03-19] MEDS ORDERED: Hydrocortisone INJ* 100 MG VIAL IV SCH (12:00)
--- NOTE | 2018-03-19 12:11 | OP ---
Operative Report - Blank - Operative Report Date of Operation: 03/19/18 Note: ARTERIAL LINE (A-Line) PLACEMENT Date: 03/19/18 Time: 12:10 Indication: Hemodynamic monitoring Attending: Asuncion Yin time-out was completed verifying correct patient, procedure, site, positioning , and special equipment if applicable. Allens test was performed to ensure adequate perfusion. The patients left wrist was prepped and draped in sterile fashion. 1% Lidocaine was used to anesthetize the area. A 20G Arrow arterial line was introduced into the radial artery. The catheter was threaded over the guide wire and the needle was removed with appropriate pulsatile blood return. The catheter was then sutured in place to the skin and a sterile dressing applied. Perfusion to the extremity distal to the point of catheter insertion was checked and found to be adequate. Estimated Blood Loss: None The patient tolerated the procedure well and there were no complications.
[2018-03-19] MEDS ORDERED: ZOSYN 3.375 GM x ONE DOSE over 30 miuntes IVPB ×2 (12:30)
[2018-03-19] MEDS ORDERED: Sodium Bicarbonate 8.4% IV* 150 MEQ in D5W 1000 ML BAG* 1,000 ML IVPB SCH (12:30)
[2018-03-19] MEDS: Epinepherine DRIP 4 mcg/ml 250 mls (dosed in mcg/kg/min) IVPB SCH ×3 (12:30→19:40)
[2018-03-19] MEDS: Hydrocortisone INJ* 100 MG VIAL IV SCH ×2 (12:37→19:48)
[2018-03-19 12:59] LABS: Hematocrit 24 % (42-52); Hemoglobin 7.2 g/dl (14.0-18.0); Mean Corpuscular HGB Conc 30 g/dl (31-36); Mean Corpuscular Hemoglobin 25 pg (27-31); Mean Corpuscular Volume 82 fL (80-94); Mean Platelet Volume 10.4 um3 (7.4-10.4); Platelet Count 313 10^3/ul (150-450); Red Cell Distribution Width 22 % (10.5-15); White Blood Count 19.3 10^3/ul (3.5-10.8)
[2018-03-19 13:01] LABS: EGFR Non-African American 46.9 (>60)
[2018-03-19] MEDS ORDERED: Atropine SYRINGE* 0.1 MG/ML 10 ML SYRINGE (1 MG) ONE (13:16)
[2018-03-19] MEDS ORDERED: EPINEPHrine SYR 0.1MG/ML* SYRINGE ONE (13:16)
--- NOTE | 2018-03-19 13:22 | ECHO ---
Patient: ALLISON POWELL [facility] Rec#: [id number] : 1945 Date: 03/19/2018 Age: 72y Height: 180 cm / 70.9 in Weight: 265 kg / 584.1 lbs Sex: M BSA: 3.32 Room#: [facility] Admit Date#: 03/19/2018 Type: Inpatient Referring: Sapna Benavidez DO Reading: Matthieu Mahan MD Cloth Dyeing Range Tender: Cheryl Hanna [facility] CC: Eduardo Marks MD CC: Renaldo Moreno Transthoracic Echocardiogram Indication: Shock BP: 91/42 HR: 74 Rhythm: NSR Findings History: COPD,asthma,smoker,ascites,s/p AVreplacement [id number]. Definity used to enhance images.Patient c/o back pain during study which limited exam and positioning. Completed at 0915. Left Ventricle: The left ventricular chamber size is normal. Septal wall hypertrophy is observed. The estimated ejection fraction is 50-55%. Closer to 50%. Post surgical hypokinesis of the interventricular septum is observed consistent with valve replacement. Left Atrium: The left atrium is moderate to severely dilated. Right Ventricle: The right ventricle is not well visualized. The septum has abnormal paradoxical motion consistent with post-operative pressure. Right Atrium: The right atrium is not well visualized. Aortic Valve: A bileaflet mechanical aortic valve is present. The mechanical aortic valve appears well seated with normal function. No significant or AI noticed. Mitral Valve: The mitral valve leaflets are moderately thickened. There is mild mitral regurgitation. There is no evidence of mitral stenosis. Tricuspid Valve: The tricuspid valve structure is not well visualized. Pulmonic Valve: The pulmonic valve appears normal. There is no evidence of pulmonic regurgitation. There is no pulmonic stenosis. Pericardium: A pericardial fat pad is visualized. Aorta: There is mild dilatation of the ascending aorta. The aortic arch is not well visualized. There is mild dilatation of the aortic root. Pulmonary Artery: The main pulmonary artery appears normal. Venous: The venous system is not well visualized. Contrast: Definity was used to optimize study. 6 ml used. Intravenous contrast was used to enhance endocardial border definition. Summary: There are changes noted when compared to the previous study done on 04/22/2009, dilated thoracic aorta is new. Conclusions The left ventricular chamber size is normal. Septal wall hypertrophy is observed. The estimated ejection fraction is 50-55%. Closer to 50%. Post surgical hypokinesis of the interventricular septum is observed consistent with valve replacement. The left atrium is moderate to severely dilated. The mechanical aortic valve appears well seated with normal function. No significant or AI noticed. There is mild mitral regurgitation. There is mild dilatation of the ascending aorta. There is mild dilatation of the aortic root. Measurements Name Value Normal Range RVIDd (AP) 2D 4.1 cm (0.9 - 2.6) IVSd (2D) 1.7 cm (0.6 - 1) LVPWd (2D) 1 cm (0.6 - 1) LVIDd (2D) 5 cm (3.6 - 5.4) LVIDs (2D) 3.9 cm - LV FS (2D) 22 % (25 - 45) Aortic Annulus 2.2 cm (1.4 - 2.6) Ao root diameter (2D) 4 cm (2.1 - 3.5) Ascending Ao 3.6 cm (2.1 - 3.4) LA dimension (AP) 2D 5.5 cm (2.3 - 3.8) Name Value Normal Range MV E-wave Vmax 1 m/sec - MV deceleration time 197 msec - MV A-wave Vmax 0.9 m/sec - MV E:A ratio 1.1 ratio - LV septal e' Vmax 0.8 m/sec - LV lateral e' Vmax 0.8 m/sec - LV E:e' septal ratio 12.5 ratio - LV E:e' lateral ratio 12.5 ratio - Name Value Normal Range AV Vmax 2 m/sec - AV VTI 40 cm - AV peak gradient 16 mmHg - AV mean gradient 8 mmHg - LVOT diameter 2.5 cm - LVOT Vmax 1 m/sec - LVOT VTI 18.8 cm - LVOT peak gradient 4 mmHg - LVOT mean gradient 2 mmHg - GLEN (continuity Vmax) 2.5 cm2 - GLEN (continuity VTI) 2.3 cm2 - Name Value Normal Range MR Vmax 4.7 m/sec - MR VTI 134 cm - Name Value Normal Range PV Vmax 1.4 m/sec - PV peak gradient 8 mmHg -
[2018-03-19 13:30] LABS: ABS Basophils 0 10^3/ul (0-0.2); ABS Eosinophils 0 10^3/ul (0-0.6); ABS Lymphocytes 1.2 10^3/ul (1.0-4.8); ABS Monocytes 2.1 10^3/ul (0-0.8)
[2018-03-19] MEDS ORDERED: Pantoprazole IV* 80 MG in NS 0.9% 250 ML* 250 ML IVPB SCH ×2 (13:30→14:00)
[2018-03-19] MEDS ORDERED: Octreotide Acetate* 500 MCG in NS 0.9% 100 ML* 100 ML IVPB SCH ×2 (13:30→14:00)
[2018-03-19 13:34] LABS: ABS Basophils 0 10^3/ul (0-0.2); ABS Neutrophils 16.8 10^3/ul (1.5-7.7); Monocytes % 7 % (0-7)
--- NOTE | 2018-03-19 13:58 | RAD ---
HISTORY: shortness of breath COMPARISONS: March 19, 2018 at 3:27 AM VIEWS: 1: frontal portable view of the chest at 1:31 PM FINDINGS: LINES AND TUBES: None. CARDIOMEDIASTINAL SILHOUETTE: The cardiomediastinal silhouette is stable. PLEURA: The costophrenic angles are sharp. No pleural abnormalities are noted. LUNG PARENCHYMA: The lung volumes are low. The lungs are clear accounting for the phase of respiration. ABDOMEN: The upper abdomen is clear. There is no subphrenic gas. BONES AND SOFT TISSUES: The patient is status post median sternotomy. IMPRESSION: LOW LUNG VOLUMES. NO ACTIVE CARDIOPULMONARY DISEASE.
[2018-03-19] MEDS ORDERED: Cefepime 1 GM in Dextrose(*) 1 GM/50 ML BAG IV SCH (14:00)
--- NOTE | 2018-03-19 14:20 | PN ---
Sepsis Event Evaluation Date of Evaluation: 03/19/18 Current Stage of Sepsis: Septic Shock Vital Signs - Last 12 Hours: Vital Signs - 12 hr Temp Pulse Resp BP Pulse Ox 03/19/18 13:00 97.0 F 76 10 97 03/19/18 12:46 97.0 F 78 25 118/42 97 03/19/18 12:31 97.0 F 80 30 101/52 96 03/19/18 12:16 96.8 F 80 34 125/47 98 03/19/18 12:01 97.0 F 78 33 110/49 97 03/19/18 12:00 97.0 F 22 03/19/18 11:46 97.0 F 80 22 122/46 98 03/19/18 11:31 97.0 F 81 34 111/46 98 03/19/18 11:16 97.2 F 80 17 104/45 96 03/19/18 11:00 97.3 F 79 28 97 03/19/18 10:08 97.3 F 78 35 93/85 99 03/19/18 10:00 97.0 F 73 35 98 03/19/18 09:16 96.8 F 75 28 105/75 100 03/19/18 09:10 30 03/19/18 09:08 19 03/19/18 09:02 96.6 F 76 24 98/54 100 03/19/18 09:00 96.6 F 75 36 100 03/19/18 08:46 96.3 F 78 31 78/60 99 03/19/18 08:30 95.9 F 77 25 98/76 100 03/19/18 08:28 95.9 F 79 26 75/66 100 03/19/18 08:01 95.4 F 73 15 102/62 92 03/19/18 08:00 95.4 F 74 32 100 18 07:46 95.2 F 73 19 99/70 100 18 07:32 94.8 F 70 24 92/60 99 03/19/18 07:16 94.6 F 75 3 101/49 100 03/19/18 07:02 94.5 F 78 25 87/67 100 18 07:00 94.5 F 76 14 100 03/19/18 06:47 94.3 F 76 23 91/54 100 03/19/18 06:33 93.9 F 77 31 74/38 100 03/19/18 06:32 93.9 F 76 25 62/52 99 03/19/18 06:16 93.2 F 77 16 91/42 99 03/19/18 06:01 92.7 F 79 14 90/44 100 03/19/18 06:00 94.3 F 77 27 100 03/19/18 05:46 93.6 F 78 28 82/51 99 03/19/18 05:39 95 F 75 22 82/54 99 03/19/18 05:37 94.3 F 76 16 101/44 98 03/19/18 05:32 94.5 F 77 26 106/58 99 03/19/18 05:20 95 F 77 17 82/54 99 03/19/18 05:16 95.0 F 74 22 82/54 99 03/19/18 05:04 37 03/19/18 04:38 95.4 F 73 18 73/52 95 03/19/18 04:27 95.4 F 74 15 82/45 96 03/19/18 04:05 95.7 F 73 21 90/56 95 03/19/18 04:00 95.7 F 74 23 97 03/19/18 03:56 95.9 F 76 31 75/47 97 03/19/18 03:35 95.9 F 76 22 77/41 93 03/19/18 03:25 95.7 F 75 30 72/40 92 03/19/18 03:08 93.2 F 78 26 76/54 93 03/19/18 03:00 77 21 95 03/19/18 02:45 85 23 82/47 91 03/19/18 02:35 85 21 72/42 95 03/19/18 02:25 81 18 84/50 94 03/19/18 02:23 79 40 94 Lactic Acid: 03/19/18 03/19/18 03/19/18 01:57 05:30 08:17 Lactic Acid 8.8 H* 9.0 H* 6.2 H* - Cardiopulmonary Exam Capillary Refill: Delayed Respiratory: Symmetrical Chest Expansion and Respiratory Effort, Clear to Auscultation Cardiovascular: NL Sounds; No Murmurs; No JVD - Peripheral Pulse Exam Radial Pulses: Bilateral Diminished Pedal Pulses: Bilateral Diminished Posterior Tibial Pulse: Bilateral Normal Femoral Pulses: Bilateral Normal Popliteal Pulses: Bilateral Normal, Bilateral Diminished - Skin Exam Skin Exam: Diaphoretic - [place] Coma Scale Best Eye Response: 4 - Spontaneous Best Motor Response: 6 - Obeys Commands Best Verbal Response: 4 - Confused Coma Scale Total: 14 Assess/Plan/Problems-Billing Assessment:
[2018-03-19] MEDS ORDERED: Vancomycin(*) 1,250 MG in NS 0.9% 250 ML* 250 ML IVPB SCH (15:00)
[2018-03-19] MEDS ORDERED: Albumin Human 25%* 12.5 GM/50 ML BTL IV SCH (17:00)
[2018-03-19] MEDS ORDERED: ZOSYN 3.375 GM Q8H per EXTENDED INFUSION IVPB SCH ×2 (17:00)
[2018-03-19 18:07] LABS: Hematocrit 24 % (42-52); Hemoglobin 7.5 g/dl (14.0-18.0); Mean Corpuscular HGB Conc 31 g/dl (31-36); Mean Corpuscular Hemoglobin 26 pg (27-31); Mean Corpuscular Volume 85 fL (80-94); Mean Platelet Volume 9.7 um3 (7.4-10.4); Platelet Count 264 10^3/ul (150-450); Red Blood Count 2.85 10^6/ul (4.00-5.40); Red Cell Distribution Width 21 % (10.5-15); White Blood Count 23.8 10^3/ul (3.5-10.8)
[2018-03-19 18:09] LABS: ABS Basophils 0.1 10^3/ul (0-0.2); ABS Eosinophils 0 10^3/ul (0-0.6); ABS Lymphocytes 1.3 10^3/ul (1.0-4.8); ABS Monocytes 2.4 10^3/ul (0-0.8); ABS Neutrophils 19.9 10^3/ul (1.5-7.7); ABS Nucleated RBC 0.2 10^3/ul; Eosinophil % 0 % (0-6); Lymphocyte % 5.4 % (25-47); Nucleated Red Blood Cells % 0.7
[2018-03-19 18:26] LABS: EGFR Non-African American 37.1 (>60)
--- NOTE | 2018-03-19 19:06 | PN ---
Progress Note - Progress Note Date of Service: 03/19/18 Note: PCCM Follow Up Called by RN who relayed 6pm labwork. Peristent lactic acidosis. Worsening renal failure. Hemoglobin remains low despite 5 units of prbc. Patient now on bipap. I discussed the severity of the patient's illness with family members at the bedside and that his failure to respond to treatment indicates poor prognosis. They agreed that they would not want CPR in the event that his heart stops and would not want intubation. The patient is now DNR/DNI. The request to continue medical treatment at this time. Additional Critical Care Time: 60 mins
[2018-03-19] MEDS ORDERED: Insulin GLARGINE(*) 1 UNITS UNIT SUBCUT SCH (21:00)
[2018-03-19] MEDS ORDERED: Morphine INJ* 2 MG/ML 1 ML SYRINGE (TWO MG - NEW SYRINGE VERSION) ONE (22:12)
[2018-03-19] MEDS ORDERED: Morphine PCA ADULT* 5 MG/ML 30 ML ONE (22:25)
[2018-03-19] MEDS ORDERED: Morphine PCA ADULT* 5 MG/ML 30 ML PCA SCH (23:00)
[2018-03-19 23:25] VITALS: BP 93/25
--- NOTE | 2018-03-19 23:25 | CONS ---
CC: Dr. Marks * CONSULTATION REPORT: DATE OF CONSULT: 03/19/18 REQUESTING PHYSICIAN: Dr. Roland in the ICU. INDICATION: Anemia. NARRATIVE: Mr. Cummins is a 72-year-old gentleman, who presented to the emergency room yesterday. Unfortunately, he is a fairly poor historian. He does have a history of coronary artery disease. He has had [place] x2, type 2 diabetes, hyperlipidemia, hypertension, tobacco abuse. He does have an aortic valve replacement. He was brought to the emergency room yesterday by his due to a change in his mental status, feeling dizzy and just not well. In the emergency room, he did have a CT, which showed a liver consistent with cirrhosis and ascites, likely hepatic metastases throughout the liver. He was also found to be anemic and hypotensive. He does have an elevated white count and febrile and has positive urine and was diagnosed with urinary sepsis. He was started on antibiotics. He has required pressors to maintain his blood pressure. He does have a history of a large nosebleed in February. The patient states that his stools have been black for the few days. His did not know about this. He has also been having abdominal pain according to his , but the patient denies. He does take an aspirin every day. He has never had GI bleeding in the past. He currently is in the ICU on 3 different pressors, being treated with antibiotics. MEDICATIONS: Include: 1. Crestor. 2. Aspirin. 3. Coumadin. 4. Bumex. 5. Omeprazole. 6. Enalapril. 7. Lispro. 8. Spironolactone. 9. Coreg. ALLERGIES: To PENICILLIN. FAMILY HISTORY: Coronary artery disease. SOCIAL HISTORY: He continues to smoke. No alcohol. He is retired. REVIEW OF SYSTEMS: Twelve systems were reviewed and other than that mentioned in the HPI were unremarkable. PHYSICAL EXAM: Temperature is 97, blood pressure is 70/41, pulse is 75, O2 sat is 99%. He is a chronically ill-appearing male. He is alert, pleasant, fluent. HEENT: Mucous membranes are dry. Heart: Irregular rate and rhythm. Lungs: Clear to auscultation. Abdomen is morbidly obese, distended. No rebound , no guarding. No masses were felt. DIAGNOSTIC STUDIES/LAB DATA: CT abdomen and pelvis shows multiple hepatic masses, some potentially necrotic with a nodular liver, moderate ascites. His white count is 19.3, hemoglobin went from 6.6 to 7.2, platelets of 313. INR is 3.81. BUN went from 29 to 31, creatinine is 1.48. AST is 101, ALT is 38 , alk phos is 98. ASSESSMENT AND PLAN: This is a pleasant 72-year-old gentleman with multiple medical issues. He is anemic. He does describe black and tarry stools. His BUN is elevated. He does have a history of cirrhosis and he takes aspirin every day. I do not believe that this is a large upper GI bleed. I think that his hypotension is more related to urosepsis rather than a large GI bleed. He is really not having any profuse bleeding. He could have esophageal varices given his cirrhosis; however, his platelet count is 313, which would point a little bit against esophageal varices. He could have peptic ulcer disease from his aspirin. He is on an IV PPI. I would recommend conservative care at this point. I do not think he would tolerate an upper GI endoscopy at this point. He should continue with blood, PPI, close monitoring. Regarding his liver disease, we do not have a good explanation for that yet. It very well could be nonalcoholic steatohepatitis cirrhosis. Unfortunately, it does appear that he could have metastases. We will continue to follow along very closely. [id number]/[facility] #: [id number] JEMMA
--- NOTE | 2018-03-19 23:58 | PN ---
Progress Note - Progress Note Date of Service: 03/19/18 Note: Just before 11pm the patient was found to be quite uncomfortable/agitated. His family was having a hard time watching him be uncomfortable. His nurse and I spoke with the patient's and one of his sons. They understand that it is unlikely the patient will survive as he is maxed out on 3 pressors. They do not want to continue aggressive therapy and wished for a comfort approach. He was given morphine 2mg and started on a morphine drip at around 11pm. The line clearance foreman was summoned and when she arrived the epinephrine drip ran out. Within 5 minute of the epinephrine stopping and despite the levophed and vasopressin still running, the patient at 2324 on 03/19/18. The cause of is septic shock secondary to UTI complicated by probable liver metastases. The basket mender was contacted and the body was released to the home.
--- NOTE | 2018-03-20 07:38 | DS ---
Patient Name: Bj Cummins Admission Date: 03/19/18 Discharge Date: 03/20/18 Attending Physician: Asuncion Primary Care Physician: Referring Physician: Consulting Physician(s): Clary Condition on Discharge: Final Diagnosis: Current Active Problems CAD (coronary artery disease) (Acute) I25.10 Diabetes (Acute) E11.9 HLD (hyperlipidemia) (Acute) E78.5 HTN (hypertension) (Acute) I10 Septic shock (Acute) A41.9, R65.21 Procedures: CT Chest/Abd/Pel 03/19 IMPRESSION: Probable underlying cirrhosis. Moderate amount of ascites. Multiple heterogeneous hepatic masses --- compatible with metastatic disease. Hepatocellular carcinoma cannot be excluded. No hydronephrosis. Bilateral non-obstructing intrarenal stones. Contracted gallbladder, containing multiple stones. Small right pleural effusion. See additional comments above. TTE 03/19/18 Conclusions The left ventricular chamber size is normal. Septal wall hypertrophy is observed. The estimated ejection fraction is 50-55%. Closer to 50%. Post surgical hypokinesis of the interventricular septum is observed consistent with valve replacement. The left atrium is moderate to severely dilated. The mechanical aortic valve appears well seated with normal function. No significant or AI noticed. There is mild mitral regurgitation. There is mild dilatation of the ascending aorta. There is mild dilatation of the aortic root. History of Present Illness Mr. Cummins is a 72-year-old male who currently is unable to provide any history. His attempts to provide history, however, she generally does a poor job of relaying the events over the last couple of days. Per the patient's , the patient had been relatively normal up until dinnertime of the night prior to admission. She noted that he did not eat any dinner. He then began this complaint of feeling dizzy when he tried to get up to go to bed. He needed assistance getting through the bedroom. He did go to bed early. Reportedly, the patient at some point yesterday complained of feeling very sweaty and dehydrated. He had not taken his diuretic for the 2 days prior as he had appointments and he did not want to be urinating, while trying to get to those appointments. He spoke with his primary care provider, who told him to double up his diuretic, which he did on . With the patient not acting completely right and his complaints of sweating and stating that he felt dehydrated, the patient's had him brought to the emergency room. Of note, the patient did have a nosebleed around . He was seen at [facility] and subsequently followed up in the emergency room due to concerns about his packing being not on the correct place. Ultimately, the packing was removed and he had no further issues with severe nosebleeds. That nosebleed, however, lasted approximately 5 hours. Laboratory/Data Laboratory Results - last 24 hr 03/19/18 03/19/18 03/19/18 01:39 01:58 08:17 WBC RBC Hgb Hct MCV MCH MCHC RDW Plt Count MPV Neut % (Auto) Lymph % (Auto) [place] % (Auto) Eos % (Auto) Baso % (Auto) Absolute Neuts (auto) Absolute Lymphs (auto) Absolute Monos (auto) Absolute Eos (auto) Absolute Basos (auto) Absolute Nucleated RBC Immature Gran % Neutrophils % Lymphocytes % Monocytes % Eosinophils % Basophils % Myelocytes % Nucleated RBC % Abs Neuts (Manual) Abs Lymphs (Manual) Abs Monocytes (Manual) Absolute Eos (Manual) Abs Basophils (Manual) Nucleated RBCs/100 WBC Normal RBC Morphology Polychromasia Hypochromasia ABG pH ABG pH (Temp Correct) ABG pCO2 ABG pCO2 (Temp Corrct ABG pO2 ABG pO2 (Temp Correct ABG HCO3 ABG O2 Saturation ABG Base Excess Sodium 134 L D 137 Potassium 4.7 4.8 Chloride 97 L 106 Carbon Dioxide 18 L 19 L Anion Gap 19 H 12 H BUN 27 H 29 H Creatinine 1.17 1.19 H Est GFR ( Amer) 74.4 72.9 Est GFR (Non-Af Amer) 61.5 60.3 BUN/Creatinine Ratio 23.1 H 24.4 H Glucose 288 H 254 H POC Glucose (mg/dL) Lactic Acid Calcium 8.4 L 7.1 L Total Bilirubin 1.40 H AST 55 H ALT 18 Alkaline Phosphatase 122 H Troponin I 0.02 C-Reactive Protein 31.77 H Total Protein 5.6 L Albumin 3.0 L Globulin 2.6 Albumin/Globulin Ratio 1.2 TSH 1.20 Cancelled Cortisol 56.96 Blood Type A Positive Antibody Screen Negative Crossmatch See Detail 03/19/18 03/19/18 03/19/18 08:17 08:17 08:25 WBC 15.9 H RBC 2.79 L Hgb 6.6 L Hct 22 L MCV 79 L MCH 24 L MCHC 30 L RDW 23 H Plt Count 328 MPV 9.6 Neut % (Auto) Lymph % (Auto) [place] % (Auto) Eos % (Auto) Baso % (Auto) Absolute Neuts (auto) Absolute Lymphs (auto) Absolute Monos (auto) Absolute Eos (auto) Absolute Basos (auto) Absolute Nucleated RBC Immature Gran % Neutrophils % Lymphocytes % Monocytes % Eosinophils % Basophils % Myelocytes % Nucleated RBC % Abs Neuts (Manual) Abs Lymphs (Manual) Abs Monocytes (Manual) Absolute Eos (Manual) Abs Basophils (Manual) Nucleated RBCs/100 WBC Normal RBC Morphology Polychromasia Hypochromasia ABG pH ABG pH (Temp Correct) ABG pCO2 ABG pCO2 (Temp Corrct ABG pO2 ABG pO2 (Temp Correct ABG HCO3 ABG O2 Saturation ABG Base Excess Sodium Potassium Chloride Carbon Dioxide Anion Gap BUN Creatinine Est GFR ( Amer) Est GFR (Non-Af Amer) BUN/Creatinine Ratio Glucose POC Glucose (mg/dL) 251 H Lactic Acid 6.2 H* Calcium Total Bilirubin AST ALT Alkaline Phosphatase Troponin I C-Reactive Protein Total Protein Albumin Globulin Albumin/Globulin Ratio TSH Cortisol Blood Type Antibody Screen Crossmatch 03/19/18 03/19/18 03/19/18 11:55 12:06 12:06 WBC 19.3 H RBC 2.90 L Hgb 7.2 L Hct 24 L MCV 82 MCH 25 L MCHC 30 L RDW 22 H Plt Count 313 MPV 10.4 Neut % (Auto) Not Reportable Lymph % (Auto) Not Reportable [place] % (Auto) Not Reportable Eos % (Auto) Not Reportable Baso % (Auto) Not Reportable Absolute Neuts (auto) 16.0 H Absolute Lymphs (auto) 1.2 Absolute Monos (auto) 2.1 H Absolute Eos (auto) 0 Absolute Basos (auto) 0 Absolute Nucleated RBC Not Reportable Immature Gran % 1 Neutrophils % 87 H Lymphocytes % 5 L Monocytes % 7 Eosinophils % 0 Basophils % 0 Myelocytes % 1 Nucleated RBC % Not Reportable Abs Neuts (Manual) 16.8 H Abs Lymphs (Manual) 1.0 Abs Monocytes (Manual) 1.4 H Absolute Eos (Manual) 0 Abs Basophils (Manual) 0 Nucleated RBCs/100 WBC 1 H Normal RBC Morphology Not Reportable Polychromasia 1+ Hypochromasia 1+ ABG pH ABG pH (Temp Correct) ABG pCO2 ABG pCO2 (Temp Corrct ABG pO2 ABG pO2 (Temp Correct ABG HCO3 ABG O2 Saturation ABG Base Excess Sodium 137 Potassium 5.0 Chloride 104 Carbon Dioxide 20 L Anion Gap 13 H BUN 31 H Creatinine 1.48 H Est GFR ( Amer) 56.7 Est GFR (Non-Af Amer) 46.9 BUN/Creatinine Ratio 20.9 H Glucose 288 H POC Glucose (mg/dL) Lactic Acid 8.1 H* Calcium 7.2 L Total Bilirubin 0.90 AST 101 H ALT 38 Alkaline Phosphatase 95 Troponin I C-Reactive Protein Total Protein 4.5 L Albumin 2.5 L Globulin 2.0 Albumin/Globulin Ratio 1.3 TSH Cortisol Blood Type Antibody Screen Crossmatch 03/19/18 03/19/18 03/19/18 12:06 17:55 17:55 WBC 23.8 H RBC 2.85 L Hgb 7.5 L Hct 24 L MCV 85 MCH 26 L MCHC 31 RDW 21 H Plt Count 264 MPV 9.7 Neut % (Auto) 83.8 H Lymph % (Auto) 5.4 L [place] % (Auto) 10.3 H Eos % (Auto) 0 Baso % (Auto) 0.5 Absolute Neuts (auto) 19.9 H Absolute Lymphs (auto) 1.3 Absolute Monos (auto) 2.4 H Absolute Eos (auto) 0 Absolute Basos (auto) 0.1 Absolute Nucleated RBC 0.2 Immature Gran % Neutrophils % Lymphocytes % Monocytes % Eosinophils % Basophils % Myelocytes % Nucleated RBC % 0.7 Abs Neuts (Manual) Abs Lymphs (Manual) Abs Monocytes (Manual) Absolute Eos (Manual) Abs Basophils (Manual) Nucleated RBCs/100 WBC Normal RBC Morphology Polychromasia Hypochromasia ABG pH 7.07 L* ABG pH (Temp Correct) Not Reportable ABG pCO2 61 H ABG pCO2 (Temp Corrct Not Reportable ABG pO2 99 ABG pO2 (Temp Correct Not Reportable ABG HCO3 15.5 L ABG O2 Saturation 98.0 ABG Base Excess -12.1 L Sodium 135 Potassium 5.8 H Chloride 104 Carbon Dioxide 19 L Anion Gap 12 H BUN 33 H Creatinine 1.81 H Est GFR ( Amer) 44.9 Est GFR (Non-Af Amer) 37.1 BUN/Creatinine Ratio 18.2 Glucose 299 H POC Glucose (mg/dL) Lactic Acid Calcium 6.6 L Total Bilirubin AST ALT Alkaline Phosphatase Troponin I C-Reactive Protein Total Protein Albumin Globulin Albumin/Globulin Ratio TSH Cortisol Blood Type Antibody Screen Crossmatch 03/19/18 17:55 WBC RBC Hgb Hct MCV MCH MCHC RDW Plt Count MPV Neut % (Auto) Lymph % (Auto) [place] % (Auto) Eos % (Auto) Baso % (Auto) Absolute Neuts (auto) Absolute Lymphs (auto) Absolute Monos (auto) Absolute Eos (auto) Absolute Basos (auto) Absolute Nucleated RBC Immature Gran % Neutrophils % Lymphocytes % Monocytes % Eosinophils % Basophils % Myelocytes % Nucleated RBC % Abs Neuts (Manual) Abs Lymphs (Manual) Abs Monocytes (Manual) Absolute Eos (Manual) Abs Basophils (Manual) Nucleated RBCs/100 WBC Normal RBC Morphology Polychromasia Hypochromasia ABG pH ABG pH (Temp Correct) ABG pCO2 ABG pCO2 (Temp Corrct ABG pO2 ABG pO2 (Temp Correct ABG HCO3 ABG O2 Saturation ABG Base Excess Sodium Potassium Chloride Carbon Dioxide Anion Gap BUN Creatinine Est GFR ( Amer) Est GFR (Non-Af Amer) BUN/Creatinine Ratio Glucose POC Glucose (mg/dL) Lactic Acid 7.4 H* Calcium Total Bilirubin AST ALT Alkaline Phosphatase Troponin I C-Reactive Protein Total Protein Albumin Globulin Albumin/Globulin Ratio TSH Cortisol Blood Type Antibody Screen Crossmatch Hospital Course The patient was admitted to the ICU. He was started on broad spectrum antibiotics. He quickly required escalating doses of vasopressors. Despite aggressive treatment measures the patient continued to decline. Discussion was held with the family at bedside who elected to change the patients code status to DNR/DNI. He was made comfort care and treatment was withdrawn. The patient at 2324. Discharge Medications - None Discharge Instructions - Follow up Appointments - None Code Status -
[2018-03-20] MEDS ORDERED: Vancomycin Trough Check NOTE FOLLOW UP ONE (14:30)
== END 2018-03-19 23:24 | disposition expired | DRG 871 ==
LOC: ED 01:14 → ICU 04:56
PROVIDERS: ADMIT Hospitalist; ATTEND Internal Medicine
PROC: 30233N1 Transfusion of Nonautologous Red Blood Cells into Peripheral Vein, Percutaneous Approach (ICD-10-PCS; principal; 2018-03-19)
PROC: 02HV33Z Insertion of Infusion Device into Superior Vena Cava, Percutaneous Approach (ICD-10-PCS; 2018-03-19)
PROC: 03HY32Z Insertion of Monitoring Device into Upper Artery, Percutaneous Approach (ICD-10-PCS; 2018-03-19)
PROC: 4A133B1 Monitoring of Arterial Pressure, Peripheral, Percutaneous Approach (ICD-10-PCS; 2018-03-19)
PROC: 4A133J1 Monitoring of Arterial Pulse, Peripheral, Percutaneous Approach (ICD-10-PCS; 2018-03-19)
PROC: 5A09357 Assistance with Respiratory Ventilation, Less than 24 Consecutive Hours, Continuous Positive Airway Pressure (ICD-10-PCS; 2018-03-19)
PROC: 3E033XZ Introduction of Vasopressor into Peripheral Vein, Percutaneous Approach (ICD-10-PCS; 2018-03-19)
DX: A41.9 Sepsis, unspecified organism (principal); R65.21 Severe sepsis with septic shock; R18.8 Other ascites; J90 Pleural effusion, not elsewhere classified; E87.2 Acidosis; C78.7 Secondary malignant neoplasm of liver and intrahepatic bile duct; N17.9 Acute kidney failure, unspecified; N39.0 Urinary tract infection, site not specified; E86.0 Dehydration; J44.9 Chronic obstructive pulmonary disease, unspecified; I25.10 Atherosclerotic heart disease of native coronary artery without angina pectoris; F17.200 Nicotine dependence, unspecified, uncomplicated; E66.01 Morbid (severe) obesity due to excess calories; I44.7 Left bundle-branch block, unspecified; N20.0 Calculus of kidney; E11.9 Type 2 diabetes mellitus without complications; I10 Essential (primary) hypertension; E66.9 Obesity, unspecified; E78.5 Hyperlipidemia, unspecified; D64.9 Anemia, unspecified; K80.20 Calculus of gallbladder without cholecystitis without obstruction; R68.0 Hypothermia, not associated with low environmental temperature; R79.1 Abnormal coagulation profile; I34.0 Nonrheumatic mitral (valve) insufficiency; K74.60 Unspecified cirrhosis of liver; R40.2364 Coma scale, best motor response, obeys commands, 24 hours or more after hospital admission; R40.2144 Coma scale, eyes open, spontaneous, 24 hours or more after hospital admission; R40.2254 Coma scale, best verbal response, oriented, 24 hours or more after hospital admission; I87.8 Other specified disorders of veins; Z66 Do not resuscitate; Z88.0 Allergy status to penicillin; I25.2 Old myocardial infarction; Z95.2 Presence of prosthetic heart valve
CPT/HCPCS: 36415; 71045; 71260; 74177; 80048; 80053; 81003; 81015; 82272; 82533; 82607; 82728; 82746; 82803; 83010; 83540; 83550; 83605; 83615; 83880; 84145; 84443; 84484; 85025; 85027; 85610; 85730; 86140; 86850; 86900; 86901; 86922; 87040; 87086; 87641; 93005; 93306; 94660; 99285; 99406; A9270-GY; C8929; J0171; J0461; J0692; J1720; J2060; J2270; J2354; J2405; J2543; J3010; J3370; J3490; J7060; P9016; P9040; P9047; Q9967